=== PATIENT | female | born 1995 | race Caucasian/White ===

== ENCOUNTER → 2023-10-18 | Outpatient (CLI) | payer BC ==
[2023-10-18 15:58] LABS: Bacterial Vaginosis PCR Negative (NEGATIVE); Candida Group, PCR NOT DETECTED (NOT DETECT); Candida glabrata-krusei, PCR NOT DETECTED (NOT DETECT)
== END | disposition home or self-care (01) ==
LOC: LAB 11:22 → LAB SHORT 11:22
PROVIDERS: Obstetrics & Gynecology
DX: N76.0 Acute vaginitis (principal)
CPT/HCPCS: 87481; 87661; 87801

== ENCOUNTER 2024-02-19 23:33 | Inpatient (IN) | payer BC ==
[~2024-02-19] VITALS: Ht 165.1 cm; Wt 95.2 kg
[2024-02-20] VITALS (16 sets, daily range): BP systolic 96–120; BP diastolic 51–74
[2024-02-20] MEDS ORDERED: Methylergonovine Maleate 0.2MG / ML 1ML Amp IM PRN ×2 (00:15→11:05)
[2024-02-20] MEDS ORDERED: Lactated Ringer's 1,000 ML IV SCH ×3 (00:15→11:05)
[2024-02-20] MEDS ORDERED: Tranexamic Acid 1,000 MG in NS 100 ML IV SCH (00:15)
[2024-02-20] MEDS ORDERED: Lactated Ringer's 1,000 ML IV PRN ×2 (00:15→00:20)
[2024-02-20] MEDS ORDERED: Misoprostol 200 MCG Tab BC PRN (00:15)
[2024-02-20] MEDS ORDERED: Carboprost Tromethamine 250 MCG/ML 1ML Amp IM PRN ×2 (00:15→11:05)
[2024-02-20] MEDS ORDERED: Misoprostol 200 MCG Tab PR PRN ×2 (00:15→11:00)
[2024-02-20] MEDS ORDERED: FentaNYL 2mcg/ml-Bup 0.1% Epd 250 ML EPI PRN (00:15)
[2024-02-20] MEDS ORDERED: OXYTOCIN/RINGER'S LACTATE 500 ML IV PRN (00:15)
[2024-02-20] MEDS ORDERED: Oxytocin 10 Unit / ML Vial IM PRN (00:15)
[2024-02-20] MEDS ORDERED: ePHEDrine Sulfate 50 MG/ML 1ML Injection XX PRN (00:15)
[2024-02-20] MEDS ORDERED: Calcium Carbonate 500 MG Tab Chew PO PRN (00:20)
[2024-02-20] MEDS ORDERED: Acetaminophen 500 MG Tab PO PRN ×2 (00:25→11:05)
[2024-02-20] MEDS ORDERED: FentaNYL Citrate 50 MCG/ML 2 ML Injection IV PRN (00:25)
[2024-02-20] MEDS ORDERED: Ondansetron HCl 2 MG / ML 2ML Vial IV PRN (00:25)
[2024-02-20 01:09] LABS: BASOPHILS ABSOLUTE AUTO 0.06 K/mm3 (0.00-0.23); BASOPHILS PERCENT AUTO 0 % (0-2); EOSINOPHILS ABSOLUTE AUTO 0.25 K/mm3 (0.00-0.68); EOSINOPHILS PERCENT AUTO 2 % (0-6); Hematocrit 40.1 % (33.0-51.0); Hemoglobin 14.1 g/dL (11.5-16.0); IMMATURE GRAN ABSOLUTE AUTO 0.08 K/mm3 (0.00-0.10); IMMATURE GRAN PERCENT AUTO 1 % (0-1); LYMPHOCYTES ABSOLUTE AUTO 3.17 K/mm3 (0.84-5.20); LYMPHOCYTES PERCENT AUTO 20 % (21-46); MONOCYTES ABSOLUTE AUTO 1.85 K/mm3 (0.16-1.47); MONOCYTES PERCENT AUTO 11 % (4-13); Mean Corpuscular HGB 31.3 pg (26.0-34.0); Mean Corpuscular HGB Conc 35.2 g/dL (31.5-36.5); Mean Corpuscular Volume 89 fL (80-100); Mean Platelet Volume 9.8 fL (9.1-12.4); NEUTROPHILS ABSOLUTE AUTO 10.75 K/mm3 (1.96-9.15); NEUTROPHILS PERCENT AUTO 67 % (41-73); Platelet Count 269 K/mm3 (150-400); RDW Standard Deviation 39.1 fL (35.1-46.3); Red Blood Cell Count 4.51 M/mm3 (3.80-5.20); White Blood Cell Count 16.16 K/mm3 (4.00-11.30)
[2024-02-20] MEDS ORDERED: OXYTOCIN/RINGER'S LACTATE 500 ML IV SCH ×2 (07:20→11:00)
[2024-02-20] MEDS ORDERED: Docusate Sodium 100 MG Cap PO PRN (11:00)
[2024-02-20] MEDS ORDERED: Ketorolac Tromethamine 30mg Vial IV PRN (11:00)
[2024-02-20] MEDS ORDERED: Witch Hazel/Glycerin PADS TOP PRN (11:00)
[2024-02-20] MEDS ORDERED: Oxytocin 10 Unit / ML Vial IM ONE (11:00)
[2024-02-20] MEDS ORDERED: Ibuprofen 400 MG Tab PO PRN (11:00)
[2024-02-20] MEDS ORDERED: Lanolin Cream TOP PRN (11:00)
[2024-02-20] MEDS ORDERED: Benzocaine Topical Anesthetic Spray 60GM TOP PRN (11:05)
[2024-02-21 03:55] VITALS: BP 111/79
[2024-02-21 08:25] VITALS: BP 138/79
[2024-02-21] MEDS ORDERED: Prenatal Vit/FE Fumarate/FA 1 Tab PO SCH (09:00)
--- NOTE | 2024-02-21 12:22 | NUR ---
Printed d/c instructions reviewed by pt, questions answered to her satisfaction. Denies additional questions/concerns at this time.
[2024-02-21 12:55] VITALS: BP 113/77
--- NOTE | 2024-02-21 13:05 | NUR ---
No acute changes t/o shift. Pt denies additional questions/concerns and verbalized understanding of d/c instructions and follow up. Pt d/c'd home ambulatory to care of .
== END 2024-02-21 13:05 | disposition home or self-care (01) | DRG 807 ==
LOC: OBS 23:33 → BC 23:37 → OBS 02-20 00:16 → BC 02-20 00:17
PROVIDERS: ADMIT Advanced Practice Midwife
PROC: 10E0XZZ Delivery of Products of Conception, External Approach (ICD-10-PCS; principal; 2024-02-20)
PROC: 0HQ9XZZ Repair Perineum Skin, External Approach (ICD-10-PCS; 2024-02-20)
DX: O42.02 Full-term premature rupture of membranes, onset of labor within 24 hours of rupture (principal); Z37.0 Single live birth; O99.344 Other mental disorders complicating childbirth; F41.8 Other specified anxiety disorders; O70.0 First degree perineal laceration during delivery; Z3A.38 38 weeks gestation of pregnancy; O69.81X0 Labor and delivery complicated by cord around neck, without compression, not applicable or unspecified
CPT/HCPCS: 36415; 59025; 85025; 86850; 86900; 86901; 99214; A9270; J1885; J2590; J7120